=== PATIENT | female | born 1945 | race Caucasian/White ===

== ENCOUNTER 2022-03-31 14:22 | Day surgery (SDC) | payer MEDICARE, BC ==
[2022-03-31] VITALS (10 sets, daily range): BP systolic 117–184; BP diastolic 48–84
[~2022-03-31] VITALS: Ht 157.5 cm; Wt 70.9 kg
[2022-03-31] MEDS ORDERED: normal saline 1000ml 1,000 ML IV SCH (14:45)
[2022-03-31] MEDS ORDERED: LORazepam 0.5 MG tablet PO ONE (14:50)
[2022-03-31] MEDS ORDERED: diphenhydrAMINE 25mg capsule PO ONE (14:50)
[2022-03-31 15:29] LABS: BASOPHILS % (AUTO) 0.5 % (0-1); EOSINOPHILS # (AUTO) 0.1 X10'3 (0-0.9); HEMATOCRIT 40.7 % (35.0-45.0); HEMOGLOBIN 13.6 g/dl (12.0-16.0); LYMPHOCYTES # (AUTO) 1.2 X10'3 (1.1-4.8); LYMPHOCYTES % (AUTO) 18.8 % (21-51); MEAN CORPUSCULAR HEMOGLOBIN 33.6 PG (27.0-31.0); MEAN CORPUSCULAR HGB CONC 33.4 g/dL (33.0-36.5); MEAN CORPUSCULAR VOLUME 100.5 FL (78-98); MEAN PLATELET VOLUME 8.2 FL (7.4-10.4); MONOCYTES # (AUTO) 0.8 X10'3 (0-0.9); MONOCYTES % (AUTO) 11.8 % (2-12); NEUTROPHILS # (AUTO) 4.4 X10'3 (1.8-7.7); NEUTROPHILS % (AUTO) 67.9 % (42-75); PLATELET COUNT 154 X10'3 (140-440); RED BLOOD COUNT 4.05 X10'6 (4.20-5.60); RED CELL DISTRIBUTION WIDTH 17.6 % (11.5-14.5); WHITE BLOOD COUNT 6.4 X10'3 (4.5-11.0)
[2022-03-31 15:38] LABS: ALBUMIN 3.8 G/DL (3.4-5.0); ANION GAP 11 (8-16); BLOOD UREA NITROGEN 26 MG/DL (7-18); CALCIUM 9.4 MG/DL (8.5-10.1); CHLORIDE 106 MMOL/L (99-107); GLUCOSE 103 MG/DL (70-104); POTASSIUM 3.3 MMOL/L (3.5-5.1); SODIUM 144 MMOL/L (135-145); TOTAL CARBON DIOXIDE 26.6 MMOL/L (24-32); eGFR 54 ML/MIN
[2022-03-31 15:39] LABS: APTT 24 SECONDS (22-32)
[2022-03-31] MEDS ORDERED: METO50TA16 PO (16:10)
[2022-03-31] MEDS ORDERED: ALLO300T8 (16:10)
[2022-03-31] MEDS ORDERED: OLME5TAB6 (16:10)
[2022-03-31] MEDS ORDERED: WARF2.5T82 (16:10)
[2022-03-31] MEDS ORDERED: ATOR20TA66 PO (16:10)
[2022-03-31] MEDS ORDERED: FURO20TA4 PO (16:10)
[2022-03-31] MEDS ORDERED: FLUT50DI (16:10)
[2022-03-31] MEDS ORDERED: LEVO50TA PO (16:10)
[2022-03-31] MEDS ORDERED: ACET-1015 PO (16:13)
[2022-03-31] MEDS ORDERED: Zinc (16:13)
[2022-03-31] MEDS ORDERED: Vitamin C (16:13)
[2022-03-31] MEDS ORDERED: MELA10TA PO (16:13)
[2022-03-31] MEDS ORDERED: fentaNYL/PF 50MCG/1 ML 2ML syringe ONE (16:21)
[2022-03-31] MEDS ORDERED: midazolam 1 mg/ML 2ml injection ONE (16:21)
[2022-03-31] MEDS ORDERED: LIDOCAINE 1% w/preservative (10 MG/ML) inj. 10mL VIAL ONE (16:21)
[2022-03-31] MEDS ORDERED: verapamil 2.5 mg/ml inj IV ONE (16:21)
[2022-03-31] MEDS ORDERED: nitroGLYCERIN-Tridil 50MG/D5W 250 ML IV ONE (16:21)
[2022-03-31] MEDS ORDERED: heparin 1,000unit/ml 10ml vial 10 ML ONE (16:21)
[2022-03-31] MEDS ORDERED: iohexol 350 MG/ML 50ML vial IV ONE ×3 (16:22→18:06)
[2022-03-31 18:31] LABS: ISTAT HGB ART 12.2 g/dl (12.0-16.0); ISTAT Hct ART 36 %PCV (35-48); ISTAT O2 SATURATION ARTERIAL 99 % (95-98); ISTAT SOURCE ART
[2022-03-31] MEDS ORDERED: hydrALAZINE 20mg/ml inj. IV ONE (18:44)
[2022-03-31] MEDS ORDERED: furosemide 40mg/4ml inj IV ONE (19:20)
[2022-03-31] MEDS ORDERED: furosemide 40mg/4ml inj ONE (19:26)
[2022-03-31] MEDS ORDERED: albuterol 2.5 MG/3 ML nebule NEB ONE (19:35)
[2022-03-31] MEDS ORDERED: ondansetron/PF 4mg/2ml inj ONE (19:58)
[2022-03-31] MEDS ORDERED: metoprolol tartrate 50mg tablet PO ONE (20:15)
[2022-03-31] MEDS ORDERED: HYDROcodone/acetaminophen 5mg/325mg tablet PO PRN (20:40)
[2022-03-31] MEDS ORDERED: HYDROcodone/acetaminophen 10/325mg tab PO PRN (20:40)
[2022-04-01 06:03] LABS: ISTAT Hct MIX 38 %PCV (35-48); ISTAT O2 SATURATION MIX VENOUS 73 % (60-80); ISTAT SOURCE BLNK
== END 2022-03-31 21:50 | disposition home or self-care (01) ==
LOC: SSTAY O 14:22
PROVIDERS: ATTEND Internal Medicine Interventional Cardiology
DX: R06.09 Other forms of dyspnea (principal); I08.0 Rheumatic disorders of both mitral and aortic valves; I12.9 Hypertensive chronic kidney disease with stage 1 through stage 4 chronic kidney disease, or unspecified chronic kidney disease; N18.9 Chronic kidney disease, unspecified; I48.91 Unspecified atrial fibrillation; E05.90 Thyrotoxicosis, unspecified without thyrotoxic crisis or storm; Z86.73 Personal history of transient ischemic attack (TIA), and cerebral infarction without residual deficits; Z79.899 Other long term (current) drug therapy
CPT/HCPCS: 36415; 80048; 82803; 85014; 85025; 85610; 85730; 93005; 93460; 94640; 99152; 99153; C1751; C1894; J0360; J1644; J1940; J2250; J2405; J3010; J3490; J7030; Q0163; Q9967; 94760; A4620; A5120

== ENCOUNTER 2023-03-31 11:54 | Day surgery (SDC) | payer MEDICARE, BC ==
[~2023-03-31] VITALS: Ht 160 cm; Wt 63.0 kg
[2023-03-31] VITALS (8 sets, daily range): BP systolic 110–139; BP diastolic 60–71
[~2023-03-31 11:54] MED LIST: ACET-1015 PO; ALLO300T8; ATOR20TA66 PO; FLUT50DI; FURO20TA4 PO; LEVO50TA PO; MELATONIN10 MG PO; METO50TA16 PO; OLME5TAB29; Vitamin C; WARF2.5T82; Zinc
[2023-03-31] MEDS ORDERED: LORazepam 0.5 MG tablet PO ONE (12:25)
[2023-03-31] MEDS ORDERED: normal saline 1000ml 1,000 ML IV SCH (12:25)
[2023-03-31] MEDS ORDERED: TORS20TA3 PO (12:53)
[2023-03-31] MEDS ORDERED: METO-384 PO (12:53)
[2023-03-31] MEDS ORDERED: SACU1TAB PO (12:53)
[2023-03-31] MEDS ORDERED: DAPA10TA PO (12:53)
[2023-03-31] MEDS ORDERED: APIX5TAB3 PO (12:53)
[2023-03-31] MEDS ORDERED: TORS10TA17 PO (12:53)
[2023-03-31] MEDS ORDERED: iohexol 350 MG/ML 50ML vial IV ONE (13:16)
[2023-03-31] MEDS ORDERED: LIDOcaine 1% (10mg/ml)w/preservative inj. 20ml MDV ONE (13:17)
[2023-03-31] MEDS ORDERED: fentaNYL/PF 50MCG/1 ML 2ML syringe ONE (14:01)
[2023-03-31] MEDS ORDERED: HYDROcodone/acetaminophen 5mg/325mg tablet PO PRN (16:50)
[2023-03-31] MEDS ORDERED: HYDROcodone/acetaminophen 10/325mg tab PO PRN (16:50)
[2023-04-01 07:11] LABS: ISTAT Hct MIX 46 %PCV (35-45); ISTAT O2 SATURATION MIX VENOUS 59 % (60-80); ISTAT SOURCE VEN
[2023-04-01 07:11] LABS: ISTAT Hct MIX 46 %PCV (35-45); ISTAT O2 SATURATION MIX VENOUS 50 % (60-80); ISTAT SOURCE VEN
== END 2023-03-31 17:20 | disposition home or self-care (01) ==
LOC: SSTAY O 11:54
PROVIDERS: ATTEND Student in an Organized Health Care Education/Training Program
DX: I13.0 Hypertensive heart and chronic kidney disease with heart failure and stage 1 through stage 4 chronic kidney disease, or unspecified chronic kidney disease (principal); I50.9 Heart failure, unspecified; N18.30 Chronic kidney disease, stage 3 unspecified; I48.91 Unspecified atrial fibrillation; I08.0 Rheumatic disorders of both mitral and aortic valves; E05.90 Thyrotoxicosis, unspecified without thyrotoxic crisis or storm; E78.5 Hyperlipidemia, unspecified; Z88.0 Allergy status to penicillin; Z91.09 Other allergy status, other than to drugs and biological substances; Z85.828 Personal history of other malignant neoplasm of skin; Z86.73 Personal history of transient ischemic attack (TIA), and cerebral infarction without residual deficits; Z79.01 Long term (current) use of anticoagulants; Z79.899 Other long term (current) drug therapy
CPT/HCPCS: 33289; 36415; 82803; 85014; 85610; 93005; 99152; 99153; A6258; C2624; J1644; J3010; J3490; J7030; Q9967; A6402; C1751; C1769; C1894

== ENCOUNTER 2024-02-09 20:02 | Inpatient (IN) | payer MEDICARE, BC ==
[~2024-02-09] VITALS: Ht 157.5 cm; Wt 57.0 kg
[~2024-02-09 20:02] MED LIST changes: +APIX5TAB3 PO; +DAPA10TA PO; -FURO20TA4 PO; -MELATONIN10 MG PO; +METO-384 PO; -METO50TA16 PO; -OLME5TAB29; +SACU1TAB PO; +TORS10TA17 PO; +TORS20TA3 PO; -WARF2.5T82; -Zinc
[2024-02-09] MEDS: NORepinephrine 8mg/ 250ml NS 250 ML IV SCH (20:28)
[2024-02-09 20:41] LABS: BASOPHILS % (AUTO) 0.2 % (0-1); EOSINOPHILS % (AUTO) 0 % (0-6); HEMATOCRIT 31.1 % (35.0-45.0); LYMPHOCYTES # (AUTO) 1.7 X10'3 (1.1-4.8); LYMPHOCYTES % (AUTO) 5.4 % (21-51); MEAN CORPUSCULAR HEMOGLOBIN 29.8 PG (27.0-31.0); MEAN CORPUSCULAR HGB CONC 32.1 g/dL (33.0-36.5); MEAN CORPUSCULAR VOLUME 92.8 FL (78-98); MONOCYTES # (AUTO) 2.1 X10'3 (0-0.9); MONOCYTES % (AUTO) 6.8 % (2-12); NEUTROPHILS # (AUTO) 27.5 X10'3 (1.8-7.7); NEUTROPHILS % (AUTO) 87.6 % (42-75); PLATELET COUNT 196 X10'3 (140-440); RED BLOOD COUNT 3.35 X10'6 (4.20-5.60); RED CELL DISTRIBUTION WIDTH 18.7 % (11.5-14.5)
[2024-02-09 20:48] LABS: WHITE BLOOD COUNT 31.5 X10'3 (4.5-11.0)
[2024-02-09 20:52] LABS: ALANINE AMINOTRANSFERASE 29 U/L (12-78); ALBUMIN 2.8 G/DL (3.4-5.0); ALKALINE PHOSPHATASE 207 IU/L (46-116); ANION GAP 11 (8-16); ASPARTATE AMINO TRANSFERASE 43 U/L (10-37); BILIRUBIN,TOTAL 1.3 MG/DL (0.1-1.0); BLOOD UREA NITROGEN 65 MG/DL (7-18); BUN/CREATININE RATIO 22.6 (10.0-20.0); CALCIUM 8.8 MG/DL (8.5-10.1); CHLORIDE 102 MMOL/L (99-107); CREATININE 2.88 MG/DL (0.40-0.90); GLUCOSE 187 MG/DL (70-104); POTASSIUM 4.6 MMOL/L (3.5-5.1); SODIUM 134 MMOL/L (135-145); TOTAL CARBON DIOXIDE 20.6 MMOL/L (24-32); TOTAL PROTEIN 5.6 G/DL (6.4-8.2); eCRCL 15 ML/MIN; eGFR 16 ML/MIN
[2024-02-09] MEDS: CefTRIAXone/D5W-Rocephin 1gm 50 ML IV ONE (21:12)
[2024-02-09] MEDS ORDERED: ALLO100T PO (21:26)
[2024-02-09 21:47] LABS: PRO BRAIN NATRIURETIC PEPTIDE > 30000 PG/ML (0-450)
[2024-02-09 22:09] LABS: TOTAL CELLS COUNTED 100
[2024-02-09 22:10] LABS: ANISOCYTOSIS 2+; BURR CELLS 2+; ELLIPTOCYTES 1+; PLATELET ESTIMATE NORMAL; SCHISTOCYTES FEW; TEAR DROP CELLS FEW
[2024-02-09] MEDS ORDERED: acetaminophen 325mg tablet PO PRN (22:55)
[2024-02-10] VITALS (23 sets, daily range): BP systolic 91–122; BP diastolic 34–60; PULSE 70–91; RESP 12–28; O2SAT 97–100
[2024-02-10] MEDS: acetaminophen 325mg tablet PO PRN (01:18)
[2024-02-10 02:18] LABS: MAGNESIUM 1.9 MG/DL (1.5-2.4)
[2024-02-10 03:12] LABS: BASOPHILS % (AUTO) 0.3 % (0-1); EOSINOPHILS % (AUTO) 0.2 % (0-6); HEMATOCRIT 28.8 % (35.0-45.0); HEMOGLOBIN 9.6 g/dl (12.0-16.0); LYMPHOCYTES # (AUTO) 0.8 X10'3 (1.1-4.8); LYMPHOCYTES % (AUTO) 5.6 % (21-51); MEAN CORPUSCULAR HEMOGLOBIN 30.9 PG (27.0-31.0); MEAN CORPUSCULAR HGB CONC 33.3 g/dL (33.0-36.5); MEAN CORPUSCULAR VOLUME 92.7 FL (78-98); MONOCYTES # (AUTO) 0.6 X10'3 (0-0.9); MONOCYTES % (AUTO) 3.9 % (2-12); NEUTROPHILS # (AUTO) 12.9 X10'3 (1.8-7.7); PLATELET COUNT 167 X10'3 (140-440); RED CELL DISTRIBUTION WIDTH 18.5 % (11.5-14.5); WHITE BLOOD COUNT 14.3 X10'3 (4.5-11.0)
[2024-02-10 03:23] LABS: INR 1.3 INR; PROTHROMBIN TIME 13.8 SECONDS (9.0-12.0)
[2024-02-10 03:27] LABS: ALANINE AMINOTRANSFERASE 26 U/L (12-78); ALBUMIN 2.5 G/DL (3.4-5.0); ALKALINE PHOSPHATASE 190 IU/L (46-116); ANION GAP 12 (8-16); ASPARTATE AMINO TRANSFERASE 37 U/L (10-37); BILIRUBIN,TOTAL 1.4 MG/DL (0.1-1.0); BLOOD UREA NITROGEN 62 MG/DL (7-18); BUN/CREATININE RATIO 23.1 (10.0-20.0); CALCIUM 8.4 MG/DL (8.5-10.1); CHLORIDE 103 MMOL/L (99-107); CREATININE 2.68 MG/DL (0.40-0.90); GLUCOSE 136 MG/DL (70-104); POTASSIUM 3.9 MMOL/L (3.5-5.1); SODIUM 136 MMOL/L (135-145); TOTAL CARBON DIOXIDE 20.6 MMOL/L (24-32); TOTAL PROTEIN 5.1 G/DL (6.4-8.2); eCRCL 16 ML/MIN; eGFR 17 ML/MIN
[2024-02-10] MEDS: pantoprazole 40mg Tablet.DR PO SCH (07:30)
[2024-02-10] MEDS: normal saline 1000ml 1,000 ML IV SCH (07:45)
[2024-02-10] MEDS ORDERED: potassium Cl 40MEQ/1/2NS 520ml 520 ML IV PRN (07:50)
[2024-02-10] MEDS ORDERED: magnesium Cl slow-release 64mg tablet PO PRN (07:50)
[2024-02-10] MEDS ORDERED: potassium Cl 20 mEq SR tablet PO PRN ×2 (07:50)
[2024-02-10] MEDS ORDERED: magnesium 4gm in 100ml NS 100 ML IV PRN (07:50)
[2024-02-10] MEDS ORDERED: magnesium 2GM in 50ml NS 50 ML IV PRN (07:50)
[2024-02-10] MEDS: K and/or MAG REPLACEMENT MC SCH (08:00)
[2024-02-10] MEDS: heparin, porcine 5000 units/ml vial SQ SCH (08:00)
[2024-02-10] MEDS ORDERED: vancomycin 1,750 MG in NS 350ml IV soln IV ONE (08:05)
[2024-02-10] MEDS: ringers solution, lacted 1,000 ML IV ONE (08:13)
[2024-02-10] MEDS ORDERED: vancomycin/NS 1 GM ADD-VANTAGE 250 ML IV PRN (08:15)
[2024-02-10] MEDS: VANCOMYCIN 1,500MG in normal saline IV soln 300 ML IV ONE (09:46)
[2024-02-10] MEDS: CefTRIAXone/D5W-Rocephin 1gm 50 ML IV ONE (09:47)
[2024-02-10] MEDS ORDERED: METO200T49 PO (10:32)
[2024-02-10] MEDS ORDERED: FURO-150 PO ×2 (10:32)
[2024-02-10] MEDS ORDERED: FLUT16SP13 BOTHNARES (10:32)
[2024-02-10] MEDS ORDERED: CINA30TA7 PO (10:45)
[2024-02-10] MEDS: CefTRIAXone/D5W-Rocephin 1gm 50 ML IV SCH (11:17)
[2024-02-10] MEDS: fentaNYL/PF 50MCG/1 ML 2ML syringe ONE (16:50)
[2024-02-10] MEDS: midazolam 1 mg/ML 2ml injection ONE (16:51)
[2024-02-10] MEDS: midazolam 1 mg/ML 2ml injection IV ONE (16:53)
[2024-02-10] MEDS: fentaNYL/PF 50MCG/1 ML 2ML syringe IV ONE (16:53)
[2024-02-11] VITALS (18 sets, daily range): BP systolic 95–132; BP diastolic 34–53; PULSE 62–106; RESP 21–26; O2SAT 90–99
[2024-02-11 02:40] LABS: BASOPHILS % (AUTO) 0.3 % (0-1); EOSINOPHILS # (AUTO) 0.1 X10'3 (0-0.9); EOSINOPHILS % (AUTO) 0.6 % (0-6); HEMATOCRIT 24.5 % (35.0-45.0); LYMPHOCYTES # (AUTO) 0.6 X10'3 (1.1-4.8); LYMPHOCYTES % (AUTO) 4.8 % (21-51); MEAN CORPUSCULAR HEMOGLOBIN 30.2 PG (27.0-31.0); MEAN CORPUSCULAR HGB CONC 32.7 g/dL (33.0-36.5); MEAN CORPUSCULAR VOLUME 92.4 FL (78-98); MEAN PLATELET VOLUME 10.2 FL (7.4-10.4); MONOCYTES # (AUTO) 0.8 X10'3 (0-0.9); MONOCYTES % (AUTO) 6.8 % (2-12); NEUTROPHILS # (AUTO) 10.2 X10'3 (1.8-7.7); NEUTROPHILS % (AUTO) 87.5 % (42-75); PLATELET COUNT 130 X10'3 (140-440); RED BLOOD COUNT 2.65 X10'6 (4.20-5.60); RED CELL DISTRIBUTION WIDTH 18.8 % (11.5-14.5); WHITE BLOOD COUNT 11.7 X10'3 (4.5-11.0)
[2024-02-11 02:48] LABS: INR 1.3 INR
[2024-02-11] MEDS: VANCOMYCIN LEVEL IV SCH (03:00)
[2024-02-11 03:17] LABS: ALANINE AMINOTRANSFERASE 23 U/L (12-78); ALBUMIN/GLOBULIN RATIO 0.8 (1.1-1.5); ALKALINE PHOSPHATASE 149 IU/L (46-116); ANION GAP 7 (8-16); ASPARTATE AMINO TRANSFERASE 32 U/L (10-37); BILIRUBIN,TOTAL 1.2 MG/DL (0.1-1.0); BLOOD UREA NITROGEN 49 MG/DL (7-18); BUN/CREATININE RATIO 29.3 (10.0-20.0); CALCIUM 8.5 MG/DL (8.5-10.1); CHLORIDE 110 MMOL/L (99-107); CREATININE 1.67 MG/DL (0.40-0.90); GLUCOSE 131 MG/DL (70-104); POTASSIUM 4.1 MMOL/L (3.5-5.1); SODIUM 139 MMOL/L (135-145); TOTAL PROTEIN 4.5 G/DL (6.4-8.2); VANCOMYCIN,RANDOM 28.7 ug/mL (20.0-30.0); eCRCL 22 ML/MIN; eGFR 30 ML/MIN
[2024-02-11 05:09] LABS: ANISOCYTOSIS 2+; PLATELET ESTIMATE DECREASED
[2024-02-11 05:10] LABS: BURR CELLS 1+; SCHISTOCYTES FEW
[2024-02-11 05:11] LABS: ELLIPTOCYTES FEW; POLYCHROMASIA FEW
[2024-02-11] MEDS: amiodarone 200mg tablet PO SCH (08:30)
[2024-02-11 08:36] LABS: THYROID STIMULATING HORMONE 4.57 ulU/ml (0.34-4.50)
[2024-02-11] MEDS: magnesium 2GM in 50ml NS 50 ML IV ONE (08:46)
[2024-02-11] MEDS: digoxin 250mcg/ml 2ml ampule IV ONE ×2 (08:55→20:21)
[2024-02-11] MEDS: ringers solution, lacted 1,000 ML IV ONE (09:54)
[2024-02-12] VITALS (13 sets, daily range): BP systolic 101–140; BP diastolic 42–74; PULSE 69–97; RESP 16–27; TEMP 97.7–98.3; O2SAT 92–99
[2024-02-12 02:43] LABS: BASOPHILS % (AUTO) 0.3 % (0-1); EOSINOPHILS # (AUTO) 0.1 X10'3 (0-0.9); EOSINOPHILS % (AUTO) 1.3 % (0-6); HEMATOCRIT 23.9 % (35.0-45.0); LYMPHOCYTES # (AUTO) 0.7 X10'3 (1.1-4.8); LYMPHOCYTES % (AUTO) 7.9 % (21-51); MEAN CORPUSCULAR HEMOGLOBIN 31.1 PG (27.0-31.0); MEAN CORPUSCULAR HGB CONC 33.6 g/dL (33.0-36.5); MEAN CORPUSCULAR VOLUME 92.7 FL (78-98); MEAN PLATELET VOLUME 9.3 FL (7.4-10.4); MONOCYTES # (AUTO) 0.6 X10'3 (0-0.9); NEUTROPHILS # (AUTO) 7.1 X10'3 (1.8-7.7); NEUTROPHILS % (AUTO) 83.5 % (42-75); PLATELET COUNT 121 X10'3 (140-440); RED BLOOD COUNT 2.58 X10'6 (4.20-5.60); RED CELL DISTRIBUTION WIDTH 18.5 % (11.5-14.5); WHITE BLOOD COUNT 8.5 X10'3 (4.5-11.0)
[2024-02-12 02:52] LABS: INR 1.1 INR; PROTHROMBIN TIME 12.2 SECONDS (9.0-12.0)
[2024-02-12 03:05] LABS: ALANINE AMINOTRANSFERASE 24 U/L (12-78); ALBUMIN 1.9 G/DL (3.4-5.0); ALBUMIN/GLOBULIN RATIO 0.7 (1.1-1.5); ALKALINE PHOSPHATASE 147 IU/L (46-116); ANION GAP 6 (8-16); ASPARTATE AMINO TRANSFERASE 26 U/L (10-37); BILIRUBIN,TOTAL 1.3 MG/DL (0.1-1.0); BLOOD UREA NITROGEN 35 MG/DL (7-18); BUN/CREATININE RATIO 25.5 (10.0-20.0); CALCIUM 8.9 MG/DL (8.5-10.1); CHLORIDE 114 MMOL/L (99-107); CREATININE 1.37 MG/DL (0.40-0.90); GLUCOSE 101 MG/DL (70-104); POTASSIUM 4.3 MMOL/L (3.5-5.1); SODIUM 142 MMOL/L (135-145); TOTAL CARBON DIOXIDE 22.3 MMOL/L (24-32); TOTAL PROTEIN 4.5 G/DL (6.4-8.2); VANCOMYCIN,RANDOM 18.1 ug/mL (20.0-30.0); eCRCL 27 ML/MIN; eGFR 37 ML/MIN
[2024-02-12] MEDS: levoTHYROXINE 25mcg tablet PO SCH (07:31)
[2024-02-12] MEDS: digoxin 250mcg/ml 2ml ampule IV SCH (07:33)
[2024-02-12] MEDS: furosemide 40mg/4ml inj IV SCH (11:15)
[2024-02-12] MEDS: VANCOMYCIN 750MG IV in NS 250 ML IV SCH (11:16)
[2024-02-12] MEDS: ampicillin inj 2 GM in normal saline 100ml IV soln 100 ML IV SCH (14:53)
[2024-02-12] MEDS ORDERED: sacubitril/valsartan 24mg-26mg tablet PO SCH (15:00)
[2024-02-12] MEDS: lactose-reduced food (Ensure Enlive) - 237ml bottle PO SCH (18:09)
[2024-02-12] MEDS: CefTRIAXone 2gm/D5W 50ml BAG 50 ML IV SCH (23:12)
[2024-02-12] MEDS: apixaban 5mg tablet PO SCH (23:13)
[2024-02-13] VITALS (8 sets, daily range): BP systolic 106–144; BP diastolic 52–77; PULSE 73–102; RESP 16–29; TEMP 97.4–98.2; O2SAT 95–99
[2024-02-13 05:51] LABS: INR 1.1 INR; PROTHROMBIN TIME 12.1 SECONDS (9.0-12.0)
[2024-02-13 06:03] LABS: BASOPHILS % (AUTO) 0.4 % (0-1); EOSINOPHILS # (AUTO) 0.2 X10'3 (0-0.9); EOSINOPHILS % (AUTO) 1.4 % (0-6); HEMATOCRIT 25.6 % (35.0-45.0); HEMOGLOBIN 8.6 g/dl (12.0-16.0); LYMPHOCYTES # (AUTO) 0.8 X10'3 (1.1-4.8); LYMPHOCYTES % (AUTO) 6.9 % (21-51); MEAN CORPUSCULAR HEMOGLOBIN 31.6 PG (27.0-31.0); MEAN CORPUSCULAR HGB CONC 33.6 g/dL (33.0-36.5); MEAN CORPUSCULAR VOLUME 93.9 FL (78-98); MEAN PLATELET VOLUME 9.5 FL (7.4-10.4); MONOCYTES # (AUTO) 0.6 X10'3 (0-0.9); MONOCYTES % (AUTO) 5.4 % (2-12); NEUTROPHILS # (AUTO) 9.7 X10'3 (1.8-7.7); NEUTROPHILS % (AUTO) 85.9 % (42-75); PLATELET COUNT 149 X10'3 (140-440); RED BLOOD COUNT 2.73 X10'6 (4.20-5.60); RED CELL DISTRIBUTION WIDTH 18.8 % (11.5-14.5); WHITE BLOOD COUNT 11.2 X10'3 (4.5-11.0)
[2024-02-13 06:06] LABS: ALANINE AMINOTRANSFERASE 17 U/L (12-78); ALBUMIN 2.2 G/DL (3.4-5.0); ALBUMIN/GLOBULIN RATIO 0.8 (1.1-1.5); ALKALINE PHOSPHATASE 134 IU/L (46-116); ANION GAP 11 (8-16); ASPARTATE AMINO TRANSFERASE 20 U/L (10-37); BLOOD UREA NITROGEN 34 MG/DL (7-18); BUN/CREATININE RATIO 26.6 (10.0-20.0); CALCIUM 9.8 MG/DL (8.5-10.1); CHLORIDE 114 MMOL/L (99-107); CREATININE 1.28 MG/DL (0.40-0.90); GLUCOSE 114 MG/DL (70-104); POTASSIUM 4.7 MMOL/L (3.5-5.1); SODIUM 145 MMOL/L (135-145); TOTAL CARBON DIOXIDE 20.3 MMOL/L (24-32); TOTAL PROTEIN 5.1 G/DL (6.4-8.2); VANCOMYCIN,RANDOM 18.8 ug/mL (20.0-30.0); eCRCL 29 ML/MIN; eGFR 40 ML/MIN
[2024-02-13 06:35] LABS: ANISOCYTOSIS 2+; PLATELET ESTIMATE NORMAL
[2024-02-13 06:36] LABS: ELLIPTOCYTES FEW; POIKILOCYTOSIS FEW; TEAR DROP CELLS FEW
[2024-02-13] MEDS: metoprolol succinate 25mg (24-HOUR) SR. Tablet PO SCH (08:00)
[2024-02-13] MEDS ORDERED: furosemide 20MG tablet PO SCH (08:00)
[2024-02-13] MEDS ORDERED: non-formulary drug (Levothyroxine Sodium (Synthroid) 1 TAB) PO SCH (08:00)
[2024-02-13] MEDS: atorvastatin 20mg tablet PO SCH (08:20)
[2024-02-13] MEDS: allopurinol 300 MG tablet PO SCH (08:35)
[2024-02-13] MEDS: diatr meglu/diatrizoate 30ml oral sol.-(3 dose) bottle PO SCH (21:00)
[2024-02-14 02:00] VITALS: BP 136/51; PULSE 83; RESP 23; TEMP 97.8; O2SAT 96
[2024-02-14] MEDS: magnesium hydroxide 30ml (MOM) UD suspension PO PRN (06:09)
[2024-02-14 06:38] LABS: INR 1.2 INR; PROTHROMBIN TIME 13.1 SECONDS (9.0-12.0)
[2024-02-14 06:42] LABS: BASOPHILS # (AUTO) 0.1 X10'3 (0-0.2); BASOPHILS % (AUTO) 0.4 % (0-1); EOSINOPHILS # (AUTO) 0.1 X10'3 (0-0.9); EOSINOPHILS % (AUTO) 0.7 % (0-6); HEMATOCRIT 27.6 % (35.0-45.0); LYMPHOCYTES # (AUTO) 0.8 X10'3 (1.1-4.8); LYMPHOCYTES % (AUTO) 6.4 % (21-51); MEAN CORPUSCULAR HEMOGLOBIN 30.8 PG (27.0-31.0); MEAN CORPUSCULAR HGB CONC 32.5 g/dL (33.0-36.5); MEAN CORPUSCULAR VOLUME 94.8 FL (78-98); MEAN PLATELET VOLUME 9.5 FL (7.4-10.4); MONOCYTES # (AUTO) 0.9 X10'3 (0-0.9); MONOCYTES % (AUTO) 7.1 % (2-12); NEUTROPHILS # (AUTO) 10.5 X10'3 (1.8-7.7); NEUTROPHILS % (AUTO) 85.4 % (42-75); PLATELET COUNT 147 X10'3 (140-440); RED BLOOD COUNT 2.91 X10'6 (4.20-5.60); WHITE BLOOD COUNT 12.4 X10'3 (4.5-11.0)
[2024-02-14 06:49] LABS: ALANINE AMINOTRANSFERASE 19 U/L (12-78); ALBUMIN 2.4 G/DL (3.4-5.0); ALBUMIN/GLOBULIN RATIO 0.8 (1.1-1.5); ALKALINE PHOSPHATASE 134 IU/L (46-116); ANION GAP 10 (8-16); ASPARTATE AMINO TRANSFERASE 21 U/L (10-37); BLOOD UREA NITROGEN 39 MG/DL (7-18); BUN/CREATININE RATIO 23.6 (10.0-20.0); CALCIUM 10.8 MG/DL (8.5-10.1); CHLORIDE 111 MMOL/L (99-107); CREATININE 1.65 MG/DL (0.40-0.90); GLUCOSE 136 MG/DL (70-104); POTASSIUM 4.9 MMOL/L (3.5-5.1); SODIUM 145 MMOL/L (135-145); TOTAL CARBON DIOXIDE 23.7 MMOL/L (24-32); TOTAL PROTEIN 5.4 G/DL (6.4-8.2); eCRCL 23 ML/MIN; eGFR 30 ML/MIN
[2024-02-14 07:58] LABS: ANISOCYTOSIS 2+; PLATELET ESTIMATE NORMAL; TOTAL CELLS COUNTED 100
[2024-02-14 08:00] VITALS: RESP 19; O2SAT 94
[2024-02-14 08:00] LABS: POLYCHROMASIA 1+; SCHISTOCYTES 1+; TEAR DROP CELLS 1+
[2024-02-14 08:01] LABS: ELLIPTOCYTES 1+; HYPOCHROMASIA 1+
[2024-02-14] MEDS: allopurinol 100mg tablet PO SCH (09:32)
[2024-02-14] MEDS: metoprolol succinate 25mg (24-HOUR) SR. Tablet PO SCH (09:34)
[2024-02-14 13:02] LABS: OCCULT BLOOD STOOL NEGATIVE (Neg)
[2024-02-14 15:00] VITALS: BP 126/53; PULSE 73; RESP 30; TEMP 98.2; O2SAT 93
[2024-02-14 18:00] VITALS: BP 133/40; PULSE 78; RESP 18; TEMP 98; O2SAT 92
[2024-02-14] MEDS: ondansetron/PF 4mg/2ml inj IV PRN (19:49)
[2024-02-14 20:00] VITALS: RESP 19; O2SAT 94
[2024-02-14] MEDS: diatr meglu/diatrizoate 30ml oral sol.-(3 dose) bottle PO SCH (21:21)
[2024-02-14 22:00] VITALS: BP 111/40; PULSE 69; RESP 20; TEMP 97.9; O2SAT 97
[2024-02-15 02:00] VITALS: BP 123/53; PULSE 70; RESP 18; TEMP 97.6; O2SAT 97
[2024-02-15 06:33] LABS: BASOPHILS % (AUTO) 0.3 % (0-1); EOSINOPHILS # (AUTO) 0.1 X10'3 (0-0.9); EOSINOPHILS % (AUTO) 0.5 % (0-6); HEMATOCRIT 27.4 % (35.0-45.0); HEMOGLOBIN 8.8 g/dl (12.0-16.0); LYMPHOCYTES # (AUTO) 1.2 X10'3 (1.1-4.8); LYMPHOCYTES % (AUTO) 8.3 % (21-51); MEAN CORPUSCULAR HEMOGLOBIN 30.5 PG (27.0-31.0); MEAN CORPUSCULAR HGB CONC 32.1 g/dL (33.0-36.5); MEAN CORPUSCULAR VOLUME 95.1 FL (78-98); MEAN PLATELET VOLUME 9.3 FL (7.4-10.4); MONOCYTES # (AUTO) 1.1 X10'3 (0-0.9); MONOCYTES % (AUTO) 7.9 % (2-12); NEUTROPHILS # (AUTO) 11.7 X10'3 (1.8-7.7); PLATELET COUNT 147 X10'3 (140-440); RED BLOOD COUNT 2.89 X10'6 (4.20-5.60); RED CELL DISTRIBUTION WIDTH 19.2 % (11.5-14.5); WHITE BLOOD COUNT 14.1 X10'3 (4.5-11.0)
[2024-02-15 06:34] LABS: INR 1.4 INR; PROTHROMBIN TIME 14.7 SECONDS (9.0-12.0)
[2024-02-15 06:49] LABS: ALANINE AMINOTRANSFERASE 49 U/L (12-78); ALBUMIN 2.4 G/DL (3.4-5.0); ALBUMIN/GLOBULIN RATIO 0.8 (1.1-1.5); ALKALINE PHOSPHATASE 131 IU/L (46-116); ANION GAP 9 (8-16); ASPARTATE AMINO TRANSFERASE 70 U/L (10-37); BILIRUBIN,TOTAL 0.9 MG/DL (0.1-1.0); BLOOD UREA NITROGEN 45 MG/DL (7-18); BUN/CREATININE RATIO 20.4 (10.0-20.0); CALCIUM 10.2 MG/DL (8.5-10.1); CHLORIDE 110 MMOL/L (99-107); CREATININE 2.21 MG/DL (0.40-0.90); GLUCOSE 112 MG/DL (70-104); POTASSIUM 4.9 MMOL/L (3.5-5.1); SODIUM 143 MMOL/L (135-145); TOTAL CARBON DIOXIDE 24.1 MMOL/L (24-32); TOTAL PROTEIN 5.4 G/DL (6.4-8.2); eCRCL 17 ML/MIN; eGFR 22 ML/MIN
[2024-02-15 07:35] VITALS: BP 127/48; PULSE 70; RESP 16; TEMP 98.1; O2SAT 99
[2024-02-15 08:00] VITALS: RESP 16; O2SAT 99
[2024-02-15] MEDS ORDERED: VANCOMYCIN LEVEL IJ ONE (08:30)
[2024-02-15 08:43] LABS: NUCLEATED RED BLOOD CELLS 1 /100WBC (0-0); PLATELET ESTIMATE NORMAL; TOTAL CELLS COUNTED 100
[2024-02-15 08:44] LABS: POLYCHROMASIA 1+
[2024-02-15 08:45] LABS: BURR CELLS FEW; ELLIPTOCYTES FEW; SCHISTOCYTES FEW
[2024-02-15 08:50] LABS: TEAR DROP CELLS FEW
[2024-02-15 08:51] LABS: ANISOCYTOSIS 2+
[2024-02-15 11:00] VITALS: BP 118/41; PULSE 70; RESP 21; TEMP 96.9; O2SAT 98
[2024-02-15] MEDS ORDERED: allopurinol 100mg tablet PO SCH (12:05)
[2024-02-15 16:05] LABS: RHEUM FACTOR QUAL REFLEX TITER NEGATIVE (Neg)
[2024-02-15] MEDS ORDERED: Melatonin 3mg tablet PO SCH (21:00)
== END 2024-02-15 16:35 | DRG 871 ==
LOC: ER 20:03 → ED HOLD 23:01 → EDBEDREQ 02-10 03:52 → CICU 2S 02-10 07:30 → PCU 3S 02-12 05:40
PROVIDERS: ADMIT Internal Medicine Critical Care Medicine; ATTEND Internal Medicine Critical Care Medicine
PROC: B24BZZ4 Ultrasonography of Heart with Aorta, Transesophageal (ICD-10-PCS; principal; 2024-02-10)
PROC: 02H633Z Insertion of Infusion Device into Right Atrium, Percutaneous Approach (ICD-10-PCS; 2024-02-15)
PROC: B548ZZA Ultrasonography of Superior Vena Cava, Guidance (ICD-10-PCS; 2024-02-15)
DX: A41.81 Sepsis due to Enterococcus (principal); I33.0 Acute and subacute infective endocarditis; N17.0 Acute kidney failure with tubular necrosis; R65.21 Severe sepsis with septic shock; I50.23 Acute on chronic systolic (congestive) heart failure; I47.20 Ventricular tachycardia, unspecified; N18.4 Chronic kidney disease, stage 4 (severe); I13.0 Hypertensive heart and chronic kidney disease with heart failure and stage 1 through stage 4 chronic kidney disease, or unspecified chronic kidney disease; D69.6 Thrombocytopenia, unspecified; E03.9 Hypothyroidism, unspecified; I48.0 Paroxysmal atrial fibrillation; D63.8 Anemia in other chronic diseases classified elsewhere; Z95.810 Presence of automatic (implantable) cardiac defibrillator; Z95.2 Presence of prosthetic heart valve; Z88.0 Allergy status to penicillin; Z79.01 Long term (current) use of anticoagulants; Z79.899 Other long term (current) drug therapy
CPT/HCPCS: 36415; 36569; 71045; 74176; 76942; 80053; 80202; 82272; 82948; 83605; 83735; 83880; 84145; 84443; 84484; 85007; 85008; 85025; 85610; 86430; 87040; 87077; 87081; 87186; 89055; 93005; 93306; 93312; 97161; 97530; 99291; A4615; A4620; C1751; G0378; J0290; J0696; J1160; J1644; J1940; J2250; J2405; J3010; J3370; J3475; J3490; J7030; J7040; J7050; J7120; Q9963